=== PATIENT | female | born 1955 | race Two or more races ===

== ENCOUNTER → 2018-02-08 | Outpatient (CLI) | payer OTHER ==
[~2018-02-08] MED LIST: IOPAMIDOL (ISOVUE-300) 100 ML BTL ONE
== END ==
LOC: FIMAGING 16:00
DX: N20.0 Calculus of kidney (principal); R93.421 Abnormal radiologic findings on diagnostic imaging of right kidney; K57.90 Diverticulosis of intestine, part unspecified, without perforation or abscess without bleeding; R91.1 Solitary pulmonary nodule; Q26.8 Other congenital malformations of great veins
CPT/HCPCS: Q9967

== ENCOUNTER → 2018-10-11 | Outpatient (CLI) | payer OTHER | LOC: FIMAGING 15:29 | PROVIDERS: ATTEND Internal Medicine Hematology & Oncology | DX: R91.8 Other nonspecific abnormal finding of lung field (principal) | CPT/HCPCS: 82565-PO; Q9967 ==